=== PATIENT | female | born 1940 | race Caucasian/White ===

== ENCOUNTER 2017-02-20 07:59 | Outpatient (CLI) | payer MEDICARE, BC ==
[~2017-02-20] VITALS: Ht 170.2 cm; Wt 90.5 kg
[~2017-02-20 07:59] MED LIST: GLUCOPHAGE500 MG PO; NORVASC5 MG PO; PERCOCET 10/3251 TA1 PO; PLAVIX75 MG PO; ZESTORETIC 10/11 TAB PO
[2017-02-20 08:44] LABS: BASOPHILS 0.3 % (0-2); EOSINOPHILS 2.8 % (0-7); HEMATOCRIT 39.7 % (36.0-48.0); HEMOGLOBIN 12.8 g/dL (12-16); IMMATURE GRANULOCYTES 0.3 % (0-5); LYMPHOCYTES 21.7 % (15-50); MCH 28.2 pg (26.0-34.0); MCHC 32.2 g/dL (31.0-37.0); MCV 87.4 fL (80.0-100.0); MEAN PLATELET VOLUME 11.4 fL (7.4-10.4); MONOCYTES 5.4 % (2-11); NEUTROPHILS 69.5 % (40-80); PLATELET COUNT 200 10x3/uL (130-400); RBC 4.54 10x6/uL (4.00-5.40)
[2017-02-20 09:00] LABS: ANION GAP 11.5 mmol/L (8-16); CARBON DIOXIDE 31.5 mmol/L (21.0-32.0); CREATININE - SERUM 0.8 mg/dL (0.6-1.3)
[2017-02-20 09:01] LABS: APTT 26.7 SECONDS (22.8-39.4); INR 0.93 (0.85-1.17); PROTIME 12.3 SECONDS (11.6-15.0)
[2017-02-20 09:06] VITALS: BP 122/65; Ht 170.2 cm; Wt 90.5 kg
[2017-02-20] MEDS ORDERED: LIPITOR20 MG PO (09:26)
[2017-02-20] MEDS ORDERED: LEXAPRO20 MG PO (09:28)
[2017-02-20] MEDS ORDERED: VITAMIN D31000 UNIT PO (09:29)
[2017-02-20] MEDS ORDERED: CALCIUM 250+D T1 TAB PO (09:32)
--- NOTE | 2017-02-20 11:33 | NUR ---
1125 BACK FROM BILATERAL SI JOINT INJECTIONS. RESP EVEN AND NONLABORED. VERBALLY RESPONSIVE. BANDAIDS X 2 SACROILLIAC JOINT SITES. NO BLEEDING.
--- NOTE | 2017-02-20 11:59 | NUR ---
1155 DIET TAKEN IT. RESP EVEN AND NONLABORED. NO COS OF PAIN.
--- NOTE | 2017-02-20 13:11 | NUR ---
1235 TO HOME VIA W/C WITH FAMILY.
--- NOTE | 2017-02-20 13:11 | NUR ---
1225 UP AND VOIDED. DCD IV CATHETER INTACT. DISCHARGE INSTRUCTIONS GIVEN AND VERBALLY UNDERSTANDS.
== END 2017-02-20 12:35 | disposition home or self-care (01) ==
LOC: D.OPS 07:59
PROVIDERS: Radiology Diagnostic Radiology
DX: M53.3 Sacrococcygeal disorders, not elsewhere classified (principal); Z01.812 Encounter for preprocedural laboratory examination

== ENCOUNTER 2017-07-03 11:30 | Emergency (ER) | payer MEDICARE, BC ==
[2017-02-20 09:06] VITALS: BMI 31.2
--- NOTE | ~2017-07-03 | HEMODYNAMI ---
PATIENT:JOSÉ ANTONIO PACHECO MEDICAL RECORD: [id number] : 38 LOCATION:[facility] ADMISSION DATE: 07/03/17 Generatedon:07/03/201714:02 Patient name: JOSÉ ANTONIO PACHECO Patient #: [id number] SSN: D OB: 1940 Date of study: 07/03/2017 Page: Of Hemodynamic Procedure Report Patient Data Patient Demographics Procedure consent was obtained First Name: JOSÉ ANTONIO Gender: Female Last Name: JUNIOR : 1940 Middle Initial: MARY Age: 76 year(s) Patient #: [id number] Race: Unknown Additional ID: [id number] Contact details [address]: [address] [place] [address] State: [place] City: [place] Zip code: [address] Past Medical History Allergies: No known allergies Admission Admission Data Admission Date: 07/03/2017 Admission Time: 11:30 Procedure Procedure Types Cath Procedure Diagnostic Procedure [facility] w/Coronaries PCI Procedure Coronary Stent Coronary Stent Initial Miscellaneous Procedures Moderate Sedation up to 30 minutes Procedure Description Procedure Date Procedure Date: 07/03/2017 Procedure Start Time: 13:28 Procedure End Time: 13:54 Procedure Staff Name Function Anirudh Raamn MD Performing Physician Heather Doll RT Monitor Vivian Melendrez RT Scrub Oscar Ko RN Nurse Irais Hartmann RT Monitor Procedure Data Cath Procedure Fluoroscopy Diagnostic fluoroscopy Total fluoroscopy Time: time: 10.1 min 10.1 min Diagnostic fluoroscopy Total fluoroscopy dose: 803 dose: 803 mGy mGy Contrast Material Contrast Material Type Amount (ml) Isovue 300 143 Entry Location Entry Primary Successful Side Size Upsize Upsize Entry Closure Limon ccessful Closure Location (Fr) 1 (Fr) 2 (Fr) Remarks Device Remarks Radial Right 6 Fr Mechanical artery Short Compression Femoral Right 7 Fr Exoseal artery Short Estimated blood loss: 5 ml Diagnostic catheters Device Type Used For End Catheter Placement DIAGNOSTIC Hudson 110cm 5 Multi-vessel Fr catheter ([id number]) Angiography Procedure Complications No complications Procedure Medications Medication Administration Route Dosage 0.9% NaCl I.V. 100 ml/hr Oxygen NC 2 l/min Heparin Flush Bag added to field 2 bags (1000units/500ml NS) Lidocaine 2% added to field 20 Benadryl I.V. 50 mg Radial Cocktail added to field 1 syringe (Verapomil 2mg/Nitro 400mcg/Heparin 1500units) Versed I.V. 0.5 mg Fentanyl I.V. 50 mcg Radial Cocktail I.A. 1 syringe (Verapomil 2mg/Nitro 400mcg/Heparin 1500units) Heparin Bolus I.V. 4000 units Integrilin (Bolus I.V. 8.5 ml 2mg/ml) Integrilin (Bolus wasted 1.5 ml 2mg/ml) Fentanyl I.V. 25 mcg Fentanyl I.V. 25 mcg Hemodynamics Rest Heart Rate: 82 (bpm) Pressure Samples Time Site Value (mmHg) Purpose Heart Use Rate(bpm) 13:30 LV 33/5,-3 Snapshot 108 Snapshots Pre Cath Intra NCS Post Cath Vital Signs Time Heart Resp SPO2 NIBP (mmHg) Rhythm Pain Sedation Rate (ipm) (%) Status Level (bpm) 13:22:29 62 19 98 132/76(110) NSR 0 (11) 10(A) , No pain 13:27:14 74 17 96 125/70(104) NSR 0 (11) 10(A) , No pain 13:31:57 78 17 94 132/66(97) NSR 0 (11) 10(A) , No pain 13:36:39 85 19 94 120/73(90) NSR 0 (11) 10(A) , No pain 13:41:22 84 16 95 114/63(92) NSR 0 (11) 10(A) , No pain 13:46:37 86 17 95 132/77(100) NSR 0 (11) 10(A) , No pain 13:51:22 83 22 97 123/68(98) NSR 0 (11) 10(A) , No pain Medications Time Medication Route Dose Verified Delivered Reason Note s Effectiveness by by 13:20:19 0.9% NaCl I.V. 100 Oscar Oscar Per physician ml/hr Maikel Ko RN RN 13:20:35 Oxygen NC 2 l/min Oscar Oscar Per physician Maikel Ko RN RN 13:20:51 Heparin Flush added 2 bags Oscar Oscar used for Bag to Maikel Ko procedure (1000units/500ml field RN RN NS) 13:21:10 Lidocaine 2% added 20ml Oscar Oscar for local to vial Maikel Ko anesthetic field RN RN 13:21:27 Benadryl I.V. 50 mg Oscar Oscar Per physician Maikel Ko RN RN 13:21:46 Radial Cocktail added 1 Oscar Oscar for (Verapomil to syringe Maikel Ko vasodilation 2mg/Nitro field RN RN 400mcg/Heparin 1500units) 13:28:25 Versed I.V. 0.5 mg Oscar Oscar for sedation Maikel Ko RN RN 13:28:36 Fentanyl I.V. 50 mcg Oscar Oscar for sedation Maikel Ko RN RN 13:28:51 Radial Cocktail I.A. 1 Oscar Anirudh for (Verapomil syringe Maikel Raman MD vasodilation 2mg/Nitro RN 400mcg/Heparin 1500units) 13:36:26 Heparin Bolus I.V. 4000 Oscar Oscar for units Maikel Ko anticoagulation RN RN 13:39:03 Integrilin I.V. 8.5 ml Oscar Oscar for (Bolus 2mg/ml) Maikel Ko antiplatelet RN RN therapy 13:39:19 Integrilin wasted 1.5 ml Oscar Oscar to sharp's (Bolus 2mg/ml) Maikel Ko RN RN 13:51:58 Fentanyl I.V. 25 mcg Oscar Oscar for sedation Maikel Ko RN RN 13:54:13 Fentanyl I.V. 25 mcg Oscar Oscar for sedation Maikel Ko RN automobile seat cover installer Log Time Note 13:00:20 Time tracking: Regular hours 13:00:25 Plan of Care:Hemodynamics will remain stable., Cardiac rhythm will remain stable., Comfort level will be maintained., Respiratory function will remain adequate., Patient/ family verbilizes understanding of procedure., Procedure tolerated without complication., Recovers from procedure without complications.. 13:00:28 Heather Doll RT(R) sent for patient. Start room use. 13:10:31 Patient received from ED to CCL 1 Alert and oriented. Tansferred to table in Supine position. 13:20:19 0.9% NaCl 100 ml/hr I.V. was administered by Oscar Ko RN; Per physician; 13:20:35 Oxygen 2 l/min NC was administered by Oscar Ko RN; Per physician; 13:20:51 Heparin Flush Bag (1000units/500ml NS) 2 bags added to field was administered by Oscar Ko RN; used for procedure; 13:21:10 Lidocaine 2% 20ml vial added to field was administered by Oscar Ko RN; for local anesthetic; 13:21:27 Benadryl 50 mg I.V. was administered by Oscar Ko RN; Per physician; 13:21:30 Vital chart was started 13:21:46 Radial Cocktail (Verapomil 2mg/Nitro 400mcg/Heparin 1500units) 1 syringe added to field was administered by Oscar Ko RN; for vasodilation; 13:23:37 Warm blankets applied, and desi hugger turned on for patient comfort. 13:23:37 Correct patient and procedure confirmed by team. 13:23:38 Signed procedure consent form obtained from patient. 13:23:39 ECG and BP/O2 sat monitors applied to patient. 13:23:41 Rhythm: sinus rhythm 13:23:43 Full Disclosure recording started 13:23:48 H&P Date Dictated: 07/03/2017 ER History on chart.. 13:23:49 Pre-procedure instructions explained to patient. 13:23:50 Pre-op teaching completed and patient verbalized understanding. 13:23:51 Family in waiting room. 13:23:52 Patient NPO since Midnight. 13:23:57 Patient allergic to No known allergies 13:23:59 Is the patient allergic to Iodine/contrast media? No. 13:24:02 Is patient on blood thinner?Yes 13:24:04 ACC The patient was administered the following blood thiners within the last 24 hours: ACCPlavix 13:24:06 Patient diabetic? Yes. 13:24:07 If diabetic: On Metformin? Yes 13:24:09 If on Metformin: Last Dose? 07/02/2017 13:24:13 Previous problem with sedation/anesthesia? No ? 13:24:14 Snore? No 13:24:15 Sleep apnea? No 13:24:16 Deviated septum? No 13:24:17 Opens mouth fully? Yes 13:24:17 Sticks out tongue? Yes 13:24:19 Airway obstruction? No ? 13:24:21 Dentures? Yes IN 13:24:25 Pre procedure: right dorsailis pedis pulse 2+ Normal; easily identifiable; not easily obliterated 13:24:27 Modified César's test Ulnar < 7 seconds 13:24:29 Patient pain scale 0/10 ?. 13:24:39 IV patent on arrival in right forearm with 0.9% NaCl at [facility]. 13:24:42 Lab results completed and on chart. 13:24:46 Right Radial & Right Groin area was prepped with chlora-prep and draped in sterile fashion 13:24:47 Alarms reviewed by R. N. 13:24:47 Sharps counted by scrub and verified by R.N. 13:24:51 Use device set Radial Dx 13:24:52 ACIST Syringe (25435) opened to sterile field. 13:24:53 Medline Cath Pack ([id number]) opened to sterile field. 13:24:53 Bag Decanter (2002S) opened to sterile field. 13:24:53 SHEATH 6FR Slender ([id number]) opened to sterile field. 13:24:54 DIAGNOSTIC WIRE .035 260cm J wire (760214) opened to sterile field. 13:24:54 ACIST Hand Control (22431) opened to sterile field. 13:24:55 ACIST Manifold (03091) opened to sterile field. 13:24:55 Tegaderm 4 x 4 (1626W) opened to sterile field. 13:24:56 MBrace Wrist Support ([id number]) opened to sterile field. 13:25:16 Final Timeout: patient, procedure, and site verified with staff and physician. All members of the team are in agreement. 13:25:18 Right Radial site verified by team. 13:25:21 Physical assessment completed. ASA score P 2 - A patient with mild systemic disease as per Anirudh Raman MD. 13:25:24 Sedation plan: IV Moderate Sedation Medication:Versed, Fentanyl 13:26:05 Baseline sample Acquired. 13:26:56 Procedure started. 13:27:01 Zero performed for pressure channel P1 13:28:05 Local anesthetic to right radial artery with Lidocaine 2% by Anirudh Raman MD.INITIAL ACCESS ONLY 13:28:16 A 6 Fr Short sheath was inserted into the Right Radial artery 13:28:25 Versed 0.5 mg I.V. was administered by Oscar Ko RN; for sedation; 13:28:29 TR BAND Large ([id number]) opened to sterile field. 13:28:36 Fentanyl 50 mcg I.V. was administered by Oscar Ko RN; for sedation; 13:28:51 Radial Cocktail (Verapomil 2mg/Nitro 400mcg/Heparin 1500units) 1 syringe I.A. was administered by Anirudh Raman MD; for vasodilation; 13:29:02 A DIAGNOSTIC Hudson 110cm 5 Fr catheter ([id number]) was advanced over the wire and used for Multi-vessel Angiography. 13:29:26 Heather Doll RT(R) was relieved by Irais Hartmann RT(R) as monitoring person 13:30:37 LV hemodynamics recorded. 13:30:38 LV gram done using ROBLERO 13:30:43 EF : 55 % 13:30:50 LCA angiography performed. 13:32:11 RCA angiography performed. 13:33:50 Catheter removed. 13:33:52 Proceeding to intervention. 13:34:24 SHEATH 7FR Coleman (UTC900) opened to sterile field. 13:36:09 CHOICE PT Extra Support J 300cm guide wire ([id number]) opened to sterile field. 13:36:22 GUIDE 7FR AR 2.0 SH catheter ([id number]) opened to sterile field. 13:36:23 INFLATOR BasixTOUCH (AQ2929) opened to sterile field. 13:36:26 Heparin Bolus 4000 units I.V. was administered by Oscar Ko RN; for anticoagulation; 13:36:53 Local anesthetic to right femoral artery with Lidocaine 2% by Anirudh Raman MD.ADDITIONAL ACCESS 13:37:06 A 7 Fr Short sheath was inserted into the Right Femoral artery 13:37:15 7 Fr ar 2 sh guide catheter was inserted over the wire 13:38:13 Guide Catheter removed. unable to cannulate vessel. 13:38:47 GUIDE 7FR HS I SH catheter ([id number]) opened to sterile field. 13:39:03 Integrilin (Bolus 2mg/ml) 8.5 ml I.V. was administered by Oscar Ko RN; for antiplatelet therapy; 13:39:19 Integrilin (Bolus 2mg/ml) 1.5 ml wasted was administered by Oscar Ko RN; to sharp's; 13:39:36 choice pt wire advanced. 13:40:14 Wire removed. damaged. 13:40:33 CHOICE PT Extra Support J 300cm guide wire ([id number]) opened to sterile field. 13:42:25 choice pt wire advanced. 13:43:44 Inflation number: 1 A MAVERICK 3.5 X 20 balloon ([id number]) was prepped and advanced across the Mid RCA, then inflated to 15 SHELIA for 0:10 (min:sec). 13:44:13 Inflation number: 1 The MAVERICK 3.5 X 20 balloon ([id number]) was reinflated across the Prox RCA, to 17 SHELIA for 0:10 (min:sec). 13:44:22 Inflation number: 2 The MAVERICK 3.5 X 20 balloon ([id number]) was reinflated across the Prox RCA, to 17 SHELIA for 0:10 (min:sec). 13:44:51 Balloon removed over the wire. 13:46:29 Inflation Number: 3 A EDGARDO OTW 3.5 x 30 stent ([id number]) was prepped and advanced across the Prox RCA. The stent was deployed at 17 SHELIA for 0:10 (min:sec). 13:47:17 Stent catheter was removed intact over wire. 13:49:08 Inflation Number: 4 A EDGARDO RX 3.5 x 18 stent ([id number]) was prepped and advanced across the Prox RCA. The stent was deployed at 17 SHELIA for 0:10 (min:sec). 13:50:25 Stent catheter was removed intact over wire. 13:50:26 Wire removed. 13:50:26 Guide catheter removed. 13:51:22 EXOSEAL 7Fr (EX700) opened to sterile field. 13:51:58 Fentanyl 25 mcg I.V. was administered by Oscar Ko RN; for sedation; 13:52:08 Sheath removed intact; hemostasis achieved with Mechanical Compression to the Right Radial artery. 13:52:17 Sheath removed intact; hemostasis achieved with Exoseal to the Right Femoral artery. 13:52:19 Procedure ended.(Physican Out) 13:52:40 Fluoroscopy time 10.10 minutes. 13:52:46 Fluoroscopy dose: 803 mGy 13:52:46 Flurop Dose total: 803 13:52:50 Contrast amount:Isovue 300 143ml. 13:52:53 Sharps counted by scrub and verified by R.N. 13:52:55 TR band inflated with 10cc of air. 13:52:58 Insertion/operative site no bleeding no hematoma. 13:53:03 Post-op/insertion site Right Femoral artery dressed using a 4 x 4 and Tegaderm. 13:53:12 Post right radial artery:stable 13:53:13 Post Procedure Pulses reassessed and unchanged 13:53:23 Post procedure rhythm: unchanged. 13:53:26 Estimated blood loss: 5 ml 13:53:27 Post procedure instruction explained to patient.Patient verbalizes understanding. 13:53:28 Patient needs reinforcement of post procedure teaching. 13:53:46 Procedure type changed to Cath procedure, Diagnostic procedure, LHC, LHC w/Coronaries, PCI procedure, Coronary Stent, Coronary Stent Initial, Miscellaneous Procedures, Moderate Sedation up to 30 minutes 13:53:47 Procedure and supply charges have been captured, reviewed, submitted and are correct. 13:53:53 Procedure Complication : No complications 13:53:55 Vital chart was stopped 13:53:55 See physician's report for complete and final results. 13:54:01 Report given to Pre/Post Procedure Room. 13:54:04 Patient transfered to Pre/Post Procedure Room with Stretcher. 13:54:06 Procedure ended. 13:54:06 Full Disclosure recording stopped 13:54:13 Fentanyl 25 mcg I.V. was administered by Oscar Ko RN; for sedation; 13:54:15 ACC-PCI Only Patient was given prescriptions, or instructed by Anirudh Raman MD to start/continue the following medications upon discharge: Plavix 13:54:25 End room use (Document Last) Intervention Summary Intervention Notes Time ActionType Lesion and Equipment Used Action# Pressure Duration Attributes 13:43:44 Inflate Mid RCA MAVERICK 3.5 X 1 15 00:10 balloon 20 balloon ([id number]) 13:44:13 Reinflate Prox RCA MAVERICK 3.5 X 1 17 00:10 balloon 20 balloon ([id number]) 13:44:22 Reinflate Prox RCA MAVERICK 3.5 X 2 17 00:10 balloon 20 balloon ([id number]) 13:46:29 Place stent Prox RCA EDGARDO OTW 3.5 x 3 17 00:10 30 stent ([id number]) 13:49:08 Place stent Prox RCA EDGARDO RX 3.5 x 4 17 00:10 18 stent ([id number]) Device Usage Item Name Manufacture Quantity Catalog Number Hospital Part Current Minimal Lot# / Charge Number Stock Stock Serial# Code ACIST Syringe Acist 1 76467 042924 537836 368467 20 (66374) Medical Systems Inc Medline Cath Cardinal 1 [id number] 417477 81365 229359 5 FlightOffice [facility] ([id number]) Bag Decanter Microtek 1 2001S 269908 73649 698918 5 () Medical Inc. SHEATH 6FR Terumo 1 [id number] 651011 460827 954645 40 Slender ([id number]) DIAGNOSTIC St Nav 1 731616 385537 958406 695288 30 WIRE .035 260cm J wire (215054) ACIST Hand Acist 1 27962 608217 359216 679619 5 Control Medical (98254) Systems Inc ACIST Manifold Acist 1 16494 424402 101919 533525 5 (39658) Medical Systems Inc Tegaderm 4 x 4 3M 1 1626W 831790 968536 752320 5 (1626W) MBrace Wrist Advanced 1 140-0250-00 904614 77218 547602 5 Support Vascular (360810009) Dynamics TR BAND Large Terumo 1 [id number] 720045 323769 431413 40 ([id number]) DIAGNOSTIC Terumo 1 40-5013 570952 976479 795703 5 Hudson 110cm 5 Fr catheter (717390) SHEATH 7FR Terumo 1 FXQ486 616101 238115 392806 5 Coleman (APA712) CHOICE PT [place] 2 [id number] 567575 140257 678732 5 [id number] Extra Support Scientific [id number] J 300cm guide wire ([id number]) GUIDE 7FR AR Medtronic 1 [id number] 590430 211356 811529 0 2.0 SH catheter ([id number]) INFLATOR Merit 1 RB8055 407222 082481 429558 5 BasixTOUCH Medical (HC9100) GUIDE 7FR HS I Medtronic 1 [id number] 359498 652223 694055 0 SH catheter (LT0UEDLD) MAVERICK 3.5 X [place] 1 [id number] 437453 048879 210898 1 57300642 20 balloon Scientific ([id number]) EDGARDO OTW 3.5 x Medtronic 1 [id number] 510793 8734265 667194 5 [id number] 30 stent ([id number]) EDGARDO RX 3.5 x Medtronic 1 [id number] 364876 0238536 887650 5 [id number] 18 stent ([id number]) EXOSEAL 7Fr Cardinal 1 EX700 029378 989489 468874 5 (EX700) Health Signature Audit [place] Stage Time Signature Unsigned Intra-Procedure 07/03/2017 Irais Hartmann 2:02:47 PM RT(R) Signatures Monitor : Heather Signature : Sharmila RT Date : Time : Monitor : Irais Hartmann RT Signature : Date : Time : [facility] [address] [place] [address]
[~2017-07-03 11:30] MED LIST changes: +CALCIUM 250+D T1 TAB PO; +LEXAPRO20 MG PO; +LIPITOR20 MG PO; +VITAMIN D31000 UNIT PO
[2017-07-03 11:57] LABS: BASOPHILS 0.3 % (0-2); EOSINOPHILS 2.7 % (0-7); HEMATOCRIT 40.2 % (36.0-48.0); HEMOGLOBIN 13.3 g/dL (12-16); IMMATURE GRANULOCYTES 0.5 % (0-5); MCHC 33.1 g/dL (31.0-37.0); MCV 87.8 fL (80.0-100.0); MEAN PLATELET VOLUME 11.5 fL (7.4-10.4); MONOCYTES 7.5 % (2-11); PLATELET COUNT 201 10x3/uL (130-400); RBC 4.58 10x6/uL (4.00-5.40); RDW 13.9 % (11.5-14.5); WBC 7.7 10x3/uL (4.8-10.8)
[2017-07-03 12:11] LABS: ALBUMIN 3.6 g/dL (3.4-5.0); ALKALINE PHOSPHATASE 88 U/L (46-116); ALT (SGPT) 18 U/L (10-68); BILIRUBIN - TOTAL 0.45 mg/dL (0.2-1.3); CALC OSMOLALITY 286 mosm/kg (275-300); CALCIUM 9.3 mg/dL (8.5-10.1); CARBON DIOXIDE 31.9 mmol/L (21.0-32.0); CHLORIDE - SERUM 105 mmol/L (98-107); CREATININE - SERUM 0.9 mg/dL (0.6-1.3); GLUCOSE 127 mg/dL (74-106); POTASSIUM - SERUM 4.7 mmol/L (3.5-5.1); PROTEIN - SERUM 7.6 g/dL (6.4-8.2); SODIUM 142 mmol/L (136-145); UREA NITROGEN 19 mg/dL (7-18); eGFR NON AFRICAN AMERICAN 64 mL/min (90-120)
[2017-07-03 12:26] LABS: CHOL - HDL RATIO 5.2 ratio (2.3-4.1); CHOLESTEROL, TOTAL 262 mg/dL (0-200); CKMB 3.2 U/L (0.0-3.6); CREATINE KINASE 249 UL (21-215); HDL CHOLESTEROL 50 mg/dL (32-96); LDL CHOLESTEROL 173 mg/dL (0-100); LDL-HDL RATIO 3.5 ratio (1.5-3.5); PRO BNP 189 pg/mL (0-450); TRIGLYCERIDE 199 mg/dL (30-200)
[2017-07-03 12:28] LABS: TROPONIN-I 0.162 ng/mL (0.000-0.060)
--- NOTE | 2017-07-03 14:15 | NUR ---
1415 RECIEVED TO ROOM VIA STRETCHER WITH REPORTS OF 2 STENTS TO THE RCA. TR BAND TO R/WRIST CDI AND 7 FR EXOSEAL R/GROIN CDI
--- NOTE | 2017-07-03 14:36 | NUR ---
TR BAND REMAINS CDI AND 7 FR EXOSEAL R/GROIN CDI VSS WITH CHEST PAIN DENIED
--- NOTE | 2017-07-03 14:45 | NUR ---
PATIENT DENIED CHEST PAIN WITH VSS TR BAND IN PLACE WITH NO BLEEDING NOTED. 7 FR EXOSEAL R/GROIN CDI NO BLEEDING NO HEMATOMA NOTED
[2017-07-03] MEDS ORDERED: BAYER CHEWABLE81 MG PO (15:10)
[2017-07-03] MEDS ORDERED: ARICEPT10 MG PO (15:10)
--- NOTE | 2017-07-03 15:17 | NUR ---
7 FR EXOSEAL R/GROIN CDI WITH NO BLEEDING NO HEMATOMA NOTED. VSS WITH CHEST PAIN DENIED TR BAND TO R/WRIST IS CDI
--- NOTE | 2017-07-03 15:50 | NUR ---
7 FR EXOSEAL R/GROIN CDI NO BLEEDING NO HEMATOMA NOTED. PATIENT VOICED NO PAIN OR NEEDS
--- NOTE | 2017-07-03 16:33 | NUR ---
2 CC AIR REMOVED FROM TR BAND WITH NO BLEEDING NO HEMATOMA NOTED
--- NOTE | 2017-07-03 17:23 | NUR ---
1700 HOB ELEVATED, WILL MONITOR R GROIN FOR BLEEDING.
--- NOTE | 2017-07-03 17:30 | NUR ---
PIV REMOVED WITH TIP INTACT FROM R AC, BANDAID APPLIED. UP TO BEDSIDE TO DRESS WITH ASSIST FROM FRIEND.
--- NOTE | 2017-07-03 17:51 | NUR ---
TR BAND WEANED COMPLETELY. TEGADERM AND COTTON BALL APPLIED. BRACE REAPPLIED TO R WRIST R GROIN REMAINS C/D/I. AMBULATED TO BATHROOM TO VOID. D/C INSTRUCTIONS DISCUSSED WITH PATIENT AND FRIEND AT BEDSIDE. TO BE BACK THURSDAY AT 8/FOR 1000 PROCEDURE. WHEELED OUT VIA WHEELCHAIR BY CATH TEAM.
--- NOTE | 2017-07-07 12:17 | OP ---
PATIENT NAME: JOSÉ ANTONIO PACHECO MEDICAL RECORD: [id number] :38 LOCATION:D.ER ADMISSION DATE: SURGEON: DEB HERRERA MD DATE OF OPERATION: 07/03/2017 PROCEDURES: 1. PTCA stent to RCA. 2. Left heart catheterization. 3. Selective coronary angiography. 4. Left ventriculogram. INDICATION: Angina and coronary artery disease. PROCEDURE PERFORMED: After informed consent was obtained and after detailed explanation of the risks, benefits as well as alternative therapies, the patient elected to proceed with angiogram and angioplasty. The right femoral area was prepped and draped in normal sterile fashion. Right femoral artery was cannulated via modified Seldinger technique with placement of a 7-Maldivian sheath. All catheters exchanged through this sheath. FINDINGS: 1. The left main has 80% stenosis at the ostium. 2. Left anterior descending has moderate irregularities, but no flow-limiting stenosis. 3. The left circumflex has moderate irregularities, but no flow-limiting stenosis. 4. Right coronary artery has 90% stenosis at the ostium followed by 95% stenosis in the mid vessel. PTCA STENT OF THE RIGHT CORONARY ARTERY: The stent used is a 3.5 x 30 and 3.5 x 18 both [place] stents. Result was 0% residual stenosis. OVERALL IMPRESSION: Successful percutaneous transluminal coronary angioplasty stent of the right coronary artery going from 95% initial stenosis to 0% residual. PLAN: PTCA stent of left main in the near future. TRANSINT:[id number] Voice Confirmation ID: [id number] DOCUMENT ID: [id number] DEB HERRERA MD at 1217 CC: [id number] DICTATION DATE: 07/03/17 1356 INSPECTOR WATCH PARTS: 07/03/17 1416 DEP ER 07/03/17 [place] [address]
== END 2017-07-03 18:00 | disposition home or self-care (01) ==
LOC: D.CLR 11:30 → D.ER 11:30 → D.CLR 13:58 → D.ER 18:00
PROVIDERS: Family Medicine
DX: I25.119 Atherosclerotic heart disease of native coronary artery with unspecified angina pectoris (principal); R07.9 Chest pain, unspecified; Z95.5 Presence of coronary angioplasty implant and graft; I10 Essential (primary) hypertension; E78.5 Hyperlipidemia, unspecified; Z01.812 Encounter for preprocedural laboratory examination

== ENCOUNTER 2017-07-06 08:09 | Outpatient (CLI) | payer MEDICARE, BC ==
[~2017-07-06] VITALS: Ht 170.2 cm; Wt 90.9 kg
--- NOTE | ~2017-07-06 | HEMODYNAMI ---
PATIENT:JOSÉ ANTONIO PACHECO MEDICAL RECORD: [id number] : 38 LOCATION:ANETTE ADMISSION DATE: 07/06/17 Generatedon:07/06/201710:52 Patient name: JOSÉ ANTONIO PACHECO Patient #: [id number] SSN: D OB: 1940 Date of study: 07/06/2017 Page: Of Hemodynamic Procedure Report Patient Data Patient Demographics Procedure consent was obtained First Name: JOSÉ ANTONIO Gender: Female Last Name: JUNIOR : 1940 Middle Initial: MARY Age: 76 year(s) Patient #: [id number] Race: Unknown Additional ID: [id number] Contact details Address: [address] [place] [address] State: [place] City: [place] Zip code: [address] Past Medical History Allergies Allergen Reaction Date Comments Reported Other 07/06/2017 cedarwood,grass,pollen, allergy shrub pollen. Admission Admission Data Admission Date: 07/06/2017 Admission Time: 8:09 Lab Results Lab Result Date: 07/06/2017 Lab Result Time: 8:45 Biochemistry Name Units Result Min Max BUN mg/dl 14 --(--*-)-- 7 18 Creatinine mg/dl 0.9 --(-*--)-- 0.6 1.3 CBC Name Units Result Min Max Hematocrit % 38 *-(----)-- 42 54 Hemoglobin g/dl 12 *-(----)-- 13.5 17.5 Procedure Procedure Types Cath Procedure PCI Procedure Coronary Stent Coronary Stent Initial Miscellaneous Procedures Moderate Sedation up to 15 minutes Procedure Description Procedure Date Procedure Date: 07/06/2017 Procedure Start Time: 10:36 Procedure End Time: 10:49 Procedure Staff Name Function Ryan Love RT Monitor Heather Doll RT Scrub Oscar Ko RN Nurse Anirudh Raman MD Performing Physician Procedure Data Cath Procedure Fluoroscopy Diagnostic fluoroscopy Total fluoroscopy Time: 3.2 time: 3.2 min min Diagnostic fluoroscopy Total fluoroscopy dose: 255 dose: 255 mGy mGy Contrast Material Contrast Material Type Amount (ml) Isovue 300 90 Entry Location Entry Primary Successful Side Size Upsize Upsize Entry Closure Succes sful Closure Location (Fr) 1 (Fr) 2 (Fr) Remarks Device Remarks Femoral Left 6 Fr Exoseal artery Short Estimated blood loss: 10 ml Procedure Complications No complications Procedure Medications Medication Administration Route Dosage 0.9% NaCl I.V. 100 ml/hr Oxygen NC 2 l/min Heparin Flush Bag added to field 2 bags (1000units/500ml NS) Lidocaine 2% added to field 20 Versed I.V. 1 mg Fentanyl I.V. 50 mcg Heparin Bolus I.V. 4000 units Hemodynamics Rest HGB: 12 (g/dl) Heart Rate: 73 (bpm) Snapshots Pre Cath Intra NCS Post Cath Vital Signs Time Heart Resp SPO2 etCO2 NIBP Rhythm Pain Sedation Rate (ipm) (%) (mmHg) (mmHg) Status Level (bpm) 10:16:40 58 15 94 0 108/53(76) NSR 0 (11) 10(A) , No pain 10:21:21 72 14 98 24.8 108/51(87) NSR 0 (11) 10(A) , No pain 10:26:00 68 16 98 38.4 100/52(67) NSR 0 (11) 10(A) , No pain 10:30:42 62 14 97 21.8 86/45(64) NSR 0 (11) 10(A) , No pain 10:35:21 65 14 97 39.8 87/47(68) NSR 0 (11) 10(A) , No pain 10:39:59 72 15 97 39.1 93/46(67) NSR 0 (11) 9(A) , No pain 10:44:40 77 17 97 40.6 95/45(64) NSR 0 (11) 9(A) , No pain 10:49:21 73 17 98 39.8 89/49(74) NSR 0 (11) 9(A) , No pain Medications Time Medication Route Dose Verified Delivered Reason Notes Effectiveness by by 10:22:46 0.9% NaCl I.V. 100 Oscar Oscar Per physician ml/hr Maikel Ko RN RN 10:22:58 Oxygen NC 2 Oscar Oscar Per physician l/min Maikel Ko RN RN 10:23:12 Heparin Flush added 2 Oscar Oscar used for Bag to bags Maikel Ko procedure (1000units/500ml RN RN NS) 10:23:25 Lidocaine 2% added 20ml Oscar Oscar for local to vial Maikel Ko anesthetic field COLLADO RN 10:32:25 Versed I.V. 1 mg Oscar Oscar for sedation Maikel Ko RN, RN 10:32:36 Fentanyl I.V. 50 Oscar Oscar for sedation mcg Maikel Ko RN RN 10:37:51 Heparin Bolus I.V. 4000 Oscar Oscar for units Maikel Ko anticoagulation RN densitometrist Log Time Note 9:57:49 Heather Counts RT(R) sent for patient. Start room use. 9:57:50 Time tracking: Regular hours 9:57:54 Plan of Care:Hemodynamics will remain stable., Cardiac rhythm will remain stable., Comfort level will be maintained., Respiratory function will remain adequate., Patient/ family verbilizes understanding of procedure., Procedure tolerated without complication., Recovers from procedure without complications.. 10:11:13 Patient received from Pre/Post Procedure Room to CCL 1 Alert and oriented. Tansferred to table in Supine position. 10:11:14 Warm blankets applied, and desi hugger turned on for patient comfort. 10:11:15 Correct patient and procedure confirmed by team. 10:11:16 Signed procedure consent form obtained from patient. 10:11:17 ECG and BP/O2 sat monitors applied to patient. 10:11:26 H&P Date Dictated: 07/03/2017 Within 30 days and on chart., H&P Addendum completed by physician on day of procedure. (MUST COMPLETE FOR ALL OUTPATIENTS). 10:11:29 Pre-procedure instructions explained to patient. 10:11:30 Pre-op teaching completed and patient verbalized understanding. 10:11:31 Family in waiting room. 10:11:34 Patient NPO since Midnight. 10:15:42 Vital chart was started 10:21:53 Baseline sample Acquired. 10:21:57 Rhythm: sinus rhythm 10:22:46 0.9% NaCl 100 ml/hr I.V. was administered by Oscar Ko RN; Per physician; 10:22:58 Oxygen 2 l/min NC was administered by Oscar Ko RN; Per physician; 10:23:01 Patient allergic to Other allergycedarwood,grass,pollen, shrub pollen. 10:23:02 Is the patient allergic to Iodine/contrast media? No. 10:23:04 Is patient on blood thinner?Yes 10:23:06 ACC The patient was administered the following blood thiners within the last 24 hours: ACCPlavix 10:23:07 Patient diabetic? Yes. 10:23:09 If diabetic: On Metformin? Yes 10:23:12 Heparin Flush Bag (1000units/500ml NS) 2 bags added to field was administered by Oscar Ko RN; used for procedure; 10:23:25 Lidocaine 2% 20ml vial added to field was administered by Oscar Ko RN; for local anesthetic; 10:25:18 If on Metformin: Last Dose? 07/06/2017 10:25:23 Previous problem with sedation/anesthesia? No ? 10:25:24 Snore? Yes 10:25:25 Sleep apnea? No 10:25:26 Deviated septum? No 10:25:27 Opens mouth fully? Yes 10:25:28 Sticks out tongue? Yes 10:25:30 Airway obstruction? No ? 10:25:37 Dentures? Yes in tight 10:26:14 Pre procedure: left dorsailis pedis pulse 1+ Palpable, but thready & weak; easily obliterated 10:26:16 Patient pain scale 0/10 ?. 10:26:20 IV patent on arrival in left hand with 0.9% NaCl at KVO. 10:28:02 Lab Result : BUN 14 mg/dl 10:28:02 Lab Result : Creatinine 0.9 mg/dl 10:28:02 Lab Result : Hemoglobin 12 g/dl 10:28:02 Lab Result : Hematocrit 38 % 10:28:05 Lab results completed and on chart. 10:28:08 Left groin area was prepped with chlora-prep and draped in sterile fashion 10:28:09 Alarms reviewed by R. N. 10:28:10 Sharps counted by scrub and verified by R.N. 10:28:14 Use device set TAUTH PCI 10:28:16 INFLATOR Merit BasixCompak (ET0591) opened to sterile field. 10:28:21 SHEATH 6FR [place] (HSS301) opened to sterile field. 10:28:28 EXOSEAL 6Fr (EX600) opened to sterile field. 10:29:16 ACIST Syringe (39313) opened to sterile field. 10:29:17 Bag Decanter (2002S) opened to sterile field. 10:29:19 Medline Cath Pack ([id number]) opened to sterile field. 10:29:21 DIAGNOSTIC WIRE .035 260cm J wire (256036) opened to sterile field. 10:29:23 ACIST Hand Control (84035) opened to sterile field. 10:29:25 ACIST Manifold (36981) opened to sterile field. 10:29:27 Tegaderm 4 x 4 (1626W) opened to sterile field. 10:29:28 PERCUTANEOUS ENTRY 19GA needle opened to sterile field. 10::43 Physician arrived 10::44 --------ALL STOP TIME OUT------ 10::44 Final Timeout: patient, procedure, and site verified with staff and physician. All members of the team are in agreement. 10:29:47 Left groin site verified by team. 10:29:54 Physical assessment completed. ASA score P 2 - A patient with mild systemic disease as per Anirudh Raman MD. 10:29:59 Sedation plan: IV Moderate Sedation Medication:Versed, Fentanyl 10:30:51 CHOICE PT Extra Support 182cm wire ([id number]) opened to sterile field. 10:32:11 Zero performed for pressure channel P1 10:32:25 Versed 1 mg I.V. was administered by Oscar Ko RN; for sedation; 10:32:36 Fentanyl 50 mcg I.V. was administered by Oscar Ko RN; for sedation; 10:32:50 Zero performed for pressure channel P1 10:36:43 Procedure started. 10:36:43 Full Disclosure recording started 10:36:47 Local anesthetic to left femerol artery with Lidocaine 2% by Anirudh Raman MD.INITIAL ACCESS ONLY 10:37:00 A 6 Fr Short sheath was inserted into the Left Femoral artery 10:37:51 Heparin Bolus 4000 units I.V. was administered by Oscar Ko RN; for anticoagulation; 10:39:16 GUIDE 6FR XB 4.0 SH catheter ([id number]) opened to sterile field. 10:39:23 GUIDE 6FR XB 3.5 SH catheter (13934615) opened to sterile field. 10:39:30 6 Fr xb 4 sh guide catheter was inserted over the wire 10:39:34 Guide Catheter removed. unable to cannulate vessel. 10:39:41 6 Fr xb 3.5 sh guide catheter was inserted over the wire 10:41:17 choice pt wire advanced. 10:42:49 Wire advanced across lesion. 10:43:24 Inflation Number: 1 A EDGARDO RX 3.5 x 08 stent ([id number]) was prepped and advanced across the LMCA. The stent was deployed at 13 SHELIA for 0:10 (min:sec). 10:43:37 Stent catheter was removed intact over wire. 10:43:37 Wire removed. 10:43:38 Guide catheter removed. 10:43:59 Sheath removed intact; hemostasis achieved with Exoseal to the Left Femoral artery. 10:44:00 Procedure ended.(Physican Out) 10:46:00 Fluoroscopy time 03.20 minutes. 10:46:03 Flurop Dose total: 255 10:46:03 Fluoroscopy dose: 255 mGy 10:46:08 Contrast amount:Isovue 300 90ml. 10:46:11 Sharps counted by scrub and verified by R.N. 10:46:49 Insertion/operative site no bleeding no hematoma. 10:46:52 Post-op/insertion site Left Femoral artery dressed using a 4 x 4 and Tegaderm. 10:47:04 Post left femerol artery:stable, soft, clean and dry 10:47:17 Post Procedure Pulses reassessed and unchanged 10:47:25 Post-procedure physical assessment completed. ASA score P 2 - A patient with mild systemic disease as per Anirudh Raman MD. 10:47:32 Post procedure rhythm: unchanged. 10:47:35 Estimated blood loss: 10 ml 10:47:36 Post procedure instruction explained to patient.Patient verbalizes understanding. 10:47:37 Patient needs reinforcement of post procedure teaching. 10:47:45 Procedure type changed to Cath procedure, PCI procedure, Coronary Stent, Coronary Stent Initial, Miscellaneous Procedures, Moderate Sedation up to 15 minutes 10:49:38 Procedure and supply charges have been captured, reviewed, submitted and are correct. 10:49:40 Procedure Complication : No complications 10:49:42 Vital chart was stopped 10:49:43 See physician's report for complete and final results. 10:49:45 Report given to Pre/Post Procedure Room. 10:49:47 Patient transfered to Pre/Post Procedure Room with Stretcher. 10:49:50 Procedure ended. 10:49:50 Full Disclosure recording stopped 10:50:06 End room use (Document Last) Intervention Summary Intervention Notes Time ActionType Lesion and Equipment Used Action# Pressure Duration Attributes 10:43:[address] stent LMCA EDGARDO RX 3.5 x 1 13 00:10 08 stent ([id number]) Device Usage Item Name Manufacture Quantity Catalog Number Hospital Part Current M inimal Lot# / Charge Number Stock Stock Serial# Code INFLATOR Merit Merit 1 [id number] 132146 845855 833209 1 5 [employer] (WM6287) SHEATH 6FR Terumo 1 [id number] 353278 784578 156210 4 0 [place] ([id number]) EXOSEAL 6Fr Cardinal 1 EX600 046837 863866 793178 1 0 (EX600) Health ACIST Syringe Acist 1 92556 678509 684739 906581 2 0 (98392) Medical Systems Inc Bag Decanter Microtek 1 2001S 991364 56529 798795 5 (2001S) Medical Inc. Medline Cath Cardinal 1 [id number] 040511 44467 950710 5 [facility] ([id number]) DIAGNOSTIC St Nav 1 256452 985732 832865 552992 3 0 WIRE .035 260cm J wire (175468) ACIST Hand Acist 1 65196 201708 627806 788290 5 Control Medical (56068) Systems Inc ACIST Manifold Acist 1 76590 884789 522121 159793 5 (00038) Medical Systems Inc Tegaderm 4 x 4 3M 1 1626W 179112 439069 545746 5 (1626W) PERCUTANEOUS Cook Medical 1 P23687 393554 335315 5 ENTRY 19GA needle CHOICE PT [place] 1 [id number] 228149 222969 677028 5 Extra Support Scientific 182cm wire ([id number]) GUIDE 6FR XB Cardinal 1 [id number] 434925 463283 091642 2 4.0 Health catheter ([id number]) GUIDE 6FR XB Cardinal 1 [id number] 657478 860704 598448 2 3.5 [facility] catheter ([id number]) EDGARDO RX 3.5 x Medtronic 1 [id number] 708481 7640379 159691 5 [id number] 08 stent ([id number]) Signature Audit [place] Stage Time Signature Unsigned Intra-Procedure 07/06/2017 Ryan Love 10:52:51 AM RT(R) Signatures Monitor : Ryan Love RT Signature : Date : Time : [address] [place] [address]
[~2017-07-06 08:09] MED LIST changes: +ARICEPT10 MG PO; +BAYER CHEWABLE81 MG PO
[2017-07-06 08:38] VITALS: BP 140/68; Ht 170.2 cm; Wt 90.9 kg
[2017-07-06 08:52] LABS: BASOPHILS 0.1 % (0-2); EOSINOPHILS 3.4 % (0-7); HEMOGLOBIN 12.4 g/dL (12-16); IMMATURE GRANULOCYTES 0.1 % (0-5); LYMPHOCYTES 20.7 % (15-50); MCH 28.9 pg (26.0-34.0); MCHC 32.6 g/dL (31.0-37.0); MCV 88.6 fL (80.0-100.0); MEAN PLATELET VOLUME 11.4 fL (7.4-10.4); MONOCYTES 7.5 % (2-11); NEUTROPHILS 68.2 % (40-80); PLATELET COUNT 203 10x3/uL (130-400); RBC 4.29 10x6/uL (4.00-5.40); RDW 14.1 % (11.5-14.5); WBC 8.6 10x3/uL (4.8-10.8)
[2017-07-06 09:04] LABS: CALCIUM 9.3 mg/dL (8.5-10.1); CARBON DIOXIDE 26.7 mmol/L (21.0-32.0); CREATININE - SERUM 0.9 mg/dL (0.6-1.3); POTASSIUM - SERUM 3.7 mmol/L (3.5-5.1)
--- NOTE | 2017-07-06 11:10 | NUR ---
1100 RECEIVED PT FROM [facility]. PT IS DROWSY. RR IS EVEN AND UNLABORED. NSR WITH RATE OF 61, BP IS 127/54. 6 FR EXOSEAL TO LEFT GROIN, AREA IS CDI WITH NO BLEEDING OR HEMATOMA NOTED. PEDAL PULSES PALPABLE. FRIEND AT BEDSIDE. PT DENIES ANY C/O AT THIS TIME. CALL LIGHT IN REACH.
--- NOTE | 2017-07-06 11:24 | NUR ---
PT DENIES ANY C/O. DRESSING TO LEFT GROIN IS CDI, PEDAL PULSES PALPABLE. RR IS EVEN AND UNLABORED. BPIS 110/59, NSR RATE 67. FRIEND AT BEDSIDE, CALL LIGHT IN REACH.
--- NOTE | 2017-07-06 11:57 | NUR ---
DRESSING TO LEFT GROIN IS CDI, AREA IS SOFT AND NONTENDER. PEDAL PULSES PALPABLE. PT DENIES ANY C/O. BP IS 112/61. NSR RATE OF 67, DENIES ANY C/O CHEST PAIN. CALL LIGHT IN REACH. NO FAMILY AT BEDSIDE AT THIS TIME.
--- NOTE | 2017-07-06 12:25 | NUR ---
1215 ENTERED ROOM, PT LAYING ON LEFT SIDE WITH LEGS BENT. REPOSITIONED PT WITH HOB AT 20 DEGREES. DRESSING LEFT GROIN IS CDI, AREA SOFT AND NONTENDER.
--- NOTE | 2017-07-06 12:45 | NUR ---
1245 PT SLEEPING, AWAKENS EASILY TO VERBAL STIMULI. DENIES ANY C/O AT THIS TIME. DRESSING TO LEFT GROIN IS CDI, AREA IS SOFT AND NONTENDER. PEDAL PULSES PALPABLE.
--- NOTE | 2017-07-06 13:15 | NUR ---
1315 DENIES ANY C/O. DRESSING IS CDI, PEDAL PULSES PALPABLE. CALL LIGHT IN REACH.
--- NOTE | 2017-07-06 14:42 | NUR ---
1430 HOB ELEVATED, SANDWICH SERVED. DRESSING CDI, PT DENIES ANY C/O AT THIS TIME.
--- NOTE | 2017-07-06 14:54 | NUR ---
1445 DRESSING TO LEFT GROIN REMAINS CDI, AREA SOFT AND NONTENDER. PT DENIES ANY C/O. PADMINI SANDWICH AND PO FLUIDS WITH NO C/O NAUSEA. IV DC'D WITH CATH INTACT. PT IS DRESSING FOR DC TO HOME.
--- NOTE | 2017-07-06 16:09 | NUR ---
1500 PT HAS VOIDED QS AND DRESSED FOR DC TO HOME. REVIEWED DC INSTRUCTIONS WITH PT WHO VERBALIZES UNDERSTANDING. PT ESCORTED TO PRIVATE AUTO VIA WC BY NURSE WITH FRIEND DRIVING HER HOME.
--- NOTE | 2017-07-07 12:15 | HP ---
PATIENT: JOSÉ ANTONIO PACHECO MEDICAL RECORD: [id number] ACCOUNT: [id number] LOCATION:ANETTE : 38 ADMISSION DATE: 07/06/17 HISTORY AND PHYSICAL EXAMINATION ADMITTING DIAGNOSES: 1. Angina. 2. Coronary artery disease. 3. Recent percutaneous transluminal coronary angioplasty stent to the right coronary artery with concomitant disease of the left main. 4. Hypertension. 5. Hyperlipidemia. HISTORY OF PRESENT ILLNESS: Ms. Pacheco presents with unstable anginal symptomatology, found to have significant disease of the left main and RCA, underwent successful PTCA stent of the RCA, is now brought back for PTCA stent of the left main. PHYSICAL EXAMINATION: GENERAL APPEARANCE: Well-nourished, well-developed, appears stated age. Level of distress, comfortable. PSYCHIATRIC: Mental status, alert, normal affect. Orientation, oriented to time, place and person. EYES: Lids and conjunctiva, noninjected. No discharge, no pallor. ENT: Lips, teeth, gums, normal dentition. Oropharynx, no cyanosis, no pallor. NECK: Carotid arteries, bilateral normal upstroke, no bruits, no thrills. JUGULAR VEINS: No jugular venous pressure or distention. CERVICAL LYMPH NODES: Nontender, nonenlarged. THYROID: Not enlarged. Nontender. No nodules. LUNGS: Respiratory effort, unlabored. CHEST: Normal curvature. No thoracic deformity. No chest wall tenderness. Percussion, resonant. Auscultation, clear. No wheezes, no rales, no rhonchi. CARDIOVASCULAR: Precordial exam, nondisplaced. No heaves or pericardial thrills. Rate and rhythm, regular. Heart sounds, normal S1, normal S2. No S3, no gallop, no rub. Systolic murmur, not heard. Diastolic murmur, not heard. EXTREMITIES: No cyanosis, no edema. Peripheral pulses, full and equal in all extremities, except as noted. No bruits appreciated. ABDOMEN: Soft, nondistended. Normal aorta. No bruit. Nontender. No masses. Liver, nontender, no hepatomegaly. Spleen, nontender, no splenomegaly. MUSCULOSKELETAL: No joint tenderness. No joint swelling. No erythema. NEUROLOGICAL: Normal gait, normal strength, normal tone. SKIN: Warm and dry. REVIEW OF SYSTEMS: The patient reports easy bruising but reports no swollen glands. The patient reports no fever, no night sweats, no significant weight gain, no significant weight loss. No significant exercise tolerance. The patient reports no dry eyes, no irritation, no vision change. Patient reports no difficulty hearing and no ear pain. Patient reports no frequent nose bleeds or nose and sinus problems. Patient reports on arm pain on exertion. No shortness of breath while lying down. No history of heart murmur. Patient reports no cough, no wheezing or coughing up blood. Patient reports no abdominal pain, no vomiting. Normal appetite. No diarrhea and not vomiting blood. No nausea and no constipation. Patient reports no incontinence. No difficulty urinating. No hematuria. No increased frequency. Patient reports no muscle aches. No weakness, no arthralgias, no back pain. No swelling of the HISTORY AND PHYSICAL [id number] JUNIORJOSÉ ANTONIO MARY extremities. Patient reports no abnormal mole, no jaundice, no rashes. Reports no loss of consciousness. No weakness and no numbness. No seizures, dizziness, or headaches. The patient reports no depression, no sleep disturbance, feeling safe in a relationship and no alcohol abuse. Patient reports on fatigue. Reports no runny nose or sinus pressure. No itching, no hives, and no frequent sneezing. OVERALL IMPRESSION: Anginal symptomatology with left main disease. We will proceed with transcatheter revascularization of the left main. TRANSINT:[id number] Voice Confirmation ID: [id number] DOCUMENT ID: [id number] DEB HERRERA MD at 1215 CC: [id number] DICTATION DATE: 07/06/17951 INSECTICIDE EXPERT: 07/06/17 1015 DEP CLI 07/06/17 [facility] [address] [place] [address]
--- NOTE | 2017-07-07 12:17 | OP ---
PATIENT NAME: JOSÉ ANTONIO PACHECO MEDICAL RECORD: [id number] :38 LOCATION:D.CAT ADMISSION DATE: SURGEON: DEB HERRERA MD DATE OF OPERATION: 07/06/2017 PROCEDURES: 1. PTCA stent left main. 2. Selective coronary angiography. INDICATION: Angina and coronary artery disease. PROCEDURE IN DETAIL: After informed consent was obtained and after detailed explanation of risks, benefits as well as alternative therapies, the patient elected to proceed with angiogram and angioplasty. The right femoral area was prepped and draped in normal sterile fashion. The right femoral artery was cannulated via modified Seldinger technique with placement of 6-Japanese sheath. All catheters exchanged through this sheath. FINDINGS: The left main had an 80% stenosis at the ostium. This was addressed with a 3.5 x 8 mm [place]. Result was 0% residual stenosis. OVERALL IMPRESSION: Successful percutaneous transluminal coronary angioplasty stent of the left main going from 80% initial stenosis to 0% residual. TRANSINT:[id number] Voice Confirmation ID: [id number] DOCUMENT ID: [id number] DEB HERRERA MD at 1217 CC: [id number] DICTATION DATE: 07/06/17 1055 CASE MANAGEMENT SPECIALIST: 07/06/17 1113 [facility] CLI 07/06/[address] [address]
== END 2017-07-06 15:00 | disposition home or self-care (01) ==
LOC: D.CATH 08:09
PROVIDERS: Internal Medicine Interventional Cardiology
DX: I25.110 Atherosclerotic heart disease of native coronary artery with unstable angina pectoris (principal); Z95.5 Presence of coronary angioplasty implant and graft; I10 Essential (primary) hypertension; E78.5 Hyperlipidemia, unspecified; Z01.812 Encounter for preprocedural laboratory examination

== ENCOUNTER → 2018-03-18 13:15 | Outpatient (CLI) | payer MEDICARE, BC ==
[2017-07-06 08:38] VITALS: BMI 31.4
[~2018-03-18 13:15] MED LIST changes: -ARICEPT10 MG PO; +ARICEPT5 MG PO; +HYDROCODONE-APA1 TAB PO; +LEXAPRO10 MG PO; -LEXAPRO20 MG PO; +MOBIC7.5 MG PO
== END | disposition home or self-care (01) ==
LOC: D.US 13:15
DX: R22.1 Localized swelling, mass and lump, neck (principal)

== ENCOUNTER 2018-04-06 09:25 | Day surgery (SDC) | payer MEDICARE, BC ==
[2018-04-05 09:32] LABS: HEMATOCRIT 37.1 % (36.0-48.0); HEMOGLOBIN 11.9 g/dL (12-16); MCH 27.7 pg (26.0-34.0); MCHC 32.1 g/dL (31.0-37.0); MCV 86.5 fL (80.0-100.0); RBC 4.29 10x6/uL (4.00-5.40); RDW 15.1 % (11.5-14.5); WBC 8.2 10x3/uL (4.8-10.8)
[~2018-04-06] VITALS: Ht 167.6 cm; Wt 83.0 kg
--- NOTE | ~2018-04-06 | OP ---
PATIENT NAME: JOSÉ ANTONIO PACHECO MEDICAL RECORD: [id number] :38 LOCATION:D.OPS ADMISSION DATE: SURGEON: JARETH BARRIENTOS MD DATE OF OPERATION: 04/06/2018 PREOPERATIVE DIAGNOSES: 1. Posterior neck lipoma. 2. Diabetes mellitus. 3. Gout. 4. Coronary artery disease. 5. Peripheral vascular disease. POSTOPERATIVE DIAGNOSES: 1. Posterior neck lipoma. 2. Diabetes mellitus. 3. Gout. 4. Coronary artery disease. 5. Peripheral vascular disease. PROCEDURE IN DETAIL: Excision of 3 cm posterior neck lipoma. SURGEON: Jareth Barrientos MD REPORT OF PROCEDURE: The patient was placed in the prone position and the posterior neck was prepped and draped in sterile fashion. A transverse incision was made overlying the mass. Electrocautery was used to dissect through the subcutaneous tissues. We eventually encountered a large lipomatous structure. This lipoma was released from its surrounding attachments. There was a cavity present around this lipoma. Once the lipoma was removed, it was measured out at about 3 cm in greatest diameter. The lipoma cavity was then treated with electrocautery and then irrigated out with normal saline. Care was taken to assure there was no sign of any active bleeding. The subcutaneous tissues were then reapproximated with interrupted 3-0 Vicryl and the skin was closed with running subcutaneous 5-0 Monocryl. A 10 mL of 0.25% Marcaine with epinephrine were infused into the surrounding tissues and the wounds were dressed appropriately. COMPLICATIONS: None. CONDITION: Stable. ANESTHESIA: General endotracheal and local. BLOOD LOSS: Minimal. TRANSINT:[id number] Voice Confirmation ID: [id number] DOCUMENT ID: [id number] OPERATIVE REPORT [id number] JOSÉ ANTONIO PACHECO MARY JARETH BARRIENTOS MD at 1421 CC: MARIO ADAN [id number] DICTATION DATE: 04/06/18 141 FREELANCE TRANSLATOR: 04/06/18 1418 [place] [id number]
[~2018-04-06 09:25] MED LIST changes: -HYDROCODONE-APA1 TAB PO
[2018-04-06 10:49] VITALS: BP 122/67; Ht 167.6 cm; Wt 83.0 kg
[2018-04-06] MEDS ORDERED: HYDROCODONE-APA1 TAB PO (14:07)
== END 2018-04-06 16:10 | disposition home or self-care (01) ==
LOC: D.OPS 09:25 → D.PAN 09:30 → D.OPS 13:10
PROVIDERS: Anesthesiology
DX: D17.0 Benign lipomatous neoplasm of skin and subcutaneous tissue of head, face and neck (principal); E11.9 Type 2 diabetes mellitus without complications; M10.9 Gout, unspecified; I25.10 Atherosclerotic heart disease of native coronary artery without angina pectoris; I70.209 Unspecified atherosclerosis of native arteries of extremities, unspecified extremity; Z01.812 Encounter for preprocedural laboratory examination

== ENCOUNTER 2018-10-25 09:00 | Outpatient (CLI) | payer MEDICARE, BC ==
[2018-04-06 10:49] VITALS: BMI 29.6
[~2018-10-25 09:00] MED LIST changes: +HYDROCODONE-APA1 TAB PO
== END 2018-10-25 10:00 | disposition home or self-care (01) ==
LOC: D.MAMMO 09:00
PROVIDERS: ATTEND Family Medicine
DX: N63.24 Unspecified lump in the left breast, lower inner quadrant (principal)

== ENCOUNTER → 2018-11-22 10:10 | Outpatient (CLI) | payer MEDICARE, BC ==
[2018-04-06 10:49] VITALS: BMI 29.6
== END | disposition home or self-care (01) ==
LOC: D.MRI 10:10
PROVIDERS: ATTEND Orthopaedic Surgery
DX: M23.309 Other meniscus derangements, unspecified meniscus, unspecified knee (principal)

== ENCOUNTER → 2018-11-25 08:27 | Outpatient (CLI) | payer MEDICARE, BC ==
[2018-04-06 10:49] VITALS: BMI 29.6
== END | disposition home or self-care (01) ==
LOC: D.MRI 08:27
PROVIDERS: ATTEND Orthopaedic Surgery
DX: M25.561 Pain in right knee (principal)

== ENCOUNTER → 2018-11-29 12:43 | Outpatient (CLI) | payer MEDICARE, BC ==
[2018-04-06 10:49] VITALS: BMI 29.6
== END | disposition home or self-care (01) ==
LOC: D.CT 12:43
PROVIDERS: ATTEND Orthopaedic Surgery
DX: R93.7 Abnormal findings on diagnostic imaging of other parts of musculoskeletal system (principal)

== ENCOUNTER → 2018-12-01 10:12 | Outpatient (CLI) | payer MEDICARE, BC ==
[2018-04-06 10:49] VITALS: BMI 29.6
== END | disposition home or self-care (01) ==
LOC: D.CT 10:12
PROVIDERS: ATTEND Orthopaedic Surgery
DX: R91.8 Other nonspecific abnormal finding of lung field (principal)

== ENCOUNTER 2018-12-07 07:42 | Outpatient (CLI) | payer MEDICARE, BC ==
[~2018-12-07] VITALS: Ht 170.2 cm; Wt 85.0 kg
[2018-12-07 08:14] LABS: BASOPHILS 0.4 % (0-2); EOSINOPHILS 2.5 % (0-7); HEMATOCRIT 33.2 % (36.0-48.0); HEMOGLOBIN 10.7 g/dL (12-16); IMMATURE GRANULOCYTES 0.2 % (0-5); LYMPHOCYTES 17.6 % (15-50); MCH 27.9 pg (26.0-34.0); MCHC 32.2 g/dL (31.0-37.0); MCV 86.7 fL (80.0-100.0); MEAN PLATELET VOLUME 11.2 fL (7.4-10.4); MONOCYTES 6.7 % (2-11); NEUTROPHILS 72.6 % (40-80); PLATELET COUNT 213 10x3/uL (130-400); RBC 3.83 10x6/uL (4.00-5.40); RDW 14.7 % (11.5-14.5); WBC 5.7 10x3/uL (4.8-10.8)
[2018-12-07 08:17] LABS: INR 0.96 (0.85-1.17); PROTIME 12.3 SECONDS (11.6-15.0)
[2018-12-07 08:18] LABS: ANION GAP 10.2 mmol/L (8-16); CALCIUM 8.8 mg/dL (8.5-10.1); CARBON DIOXIDE 30.9 mmol/L (21.0-32.0); CREATININE - SERUM 1.1 mg/dL (0.6-1.3); POTASSIUM - SERUM 5.1 mmol/L (3.5-5.1)
[2018-12-07] MEDS ORDERED: ADVIL200 MG PO (08:45)
[2018-12-07 08:50] VITALS: BP 127/53; Ht 170.2 cm; Wt 85.0 kg
--- NOTE | 2018-12-07 12:56 | NUR ---
DC INSTRUCTIONS GIVEN TO PT/FAMILY. STATE UNDERSTANDING. DC'D IV CATH FULLY INTACT. PT LEFT UNIT VIA WC AT 1255
== END 2018-12-07 12:55 | disposition home or self-care (01) ==
LOC: D.SP 07:42 → D.CT 08:30 → D.SP 08:30
PROVIDERS: Radiology Diagnostic Radiology; ATTEND Family Medicine
DX: C79.51 Secondary malignant neoplasm of bone (principal); Z01.812 Encounter for preprocedural laboratory examination

== ENCOUNTER → 2019-01-03 08:44 | Outpatient (CLI) | payer MEDICARE, BC ==
[2018-12-07 08:50] VITALS: BMI 29.3
[~2019-01-03 08:44] MED LIST changes: +ADVIL200 MG PO
--- NOTE | 2019-01-04 15:37 | EC ---
PATIENT:JOSÉ ANTONIO PACHECO DATE OF SERVICE: 01/03/19 SEX: F MEDICAL RECORD: [id number] DATE OF : 38 LOCATION:[facility] AGE OF PATIENT: 78 ADMISSION DATE: 01/03/19 REFERRING PHYSICIAN: INTERPRETING PHYSICIAN: SOLEDAD TANNER MD ECHOCARDIOGRAM REPORT ECHO CHARGES 4 ECHO COMPLETE Date: 01/03/19 CLINICAL DIAGNOSIS: ASSESS EF, CHEMO ECHOCARDIOGRAPHIC MEASUREMENTS (adult normal given) AC root (d.<3.7cm) 3.1 cm LV Septum d (<1.2 cm> 1.8 cm Valve Excursion 2.0 cm LV Septum (systole) 2.1 cm Left Atria (s.<4.0cm> 3.7 cm LVPW d(<1.2cm) 1.1 cm RV (d.<2.3cm) 3.8 cm LVPW (sytole) 1.5 cm LV diastole(<5.6CM) 5.4 cm MV E-F(>70mm/sec) cm LV systole 4.2 cm LVOT Diameter 1.7 cm MV exc.(>10mm) cm Est.ejection fraction (50-75%) % DOPPLER: LVIT cm/sec A 112 cm/sec E 90 cm/sec LA cm/sec RVSP 42.2 mmHg LVOT 139 cm/sec AOP1/2T m/s Asc. Ao 154 cm/sec RVOT 60 cm/sec RA cm/sec PA 79 cm/sec AV Gradient Peak 9.5 mmHg AV Mean 5.1 mmHg AV Area 2.1 cm MV Gradient Peak 6.2 mmHg MV Mean 2.9 mmHg MV Area cm COMMENTS: Template Storage Clerk: Addison JARA Director Hair: 3 Dr. Sousa TAPE# PACS Pericardial Effusion N DATE OF SERVICE: Adequate 2D, color flow, spectral Doppler, and M-Mode. Mild LVH. LV internal dimension is normal. Wall motion is normal. EF is greater than or equal to 55%. Aortic valve sclerosis. There is no evidence of stenosis on Doppler interrogation. Left atrium is normal. Mitral valve shows no prolapse. Trace MR only. Right-sided chambers are grossly normal. Mild TR. TRANSINT:[id number] Voice Confirmation ID: [id number] DOCUMENT ID: [id number] ECHOCARDIOGRAM REPORT [id number] JOSÉ ANTONIO PACHECO SOLEDAD TANNER MD at 1537 CC: SEGUNDO GALAN MD [id number] DICTATION DATE: 01/03/19 1204 SHIPMASTER: 01/03/19 1422 DEP CLI 01/03/19 [place] [id number] [place] [address]
== END | disposition home or self-care (01) ==
LOC: D.ECHO 08:44
PROVIDERS: ATTEND Internal Medicine Medical Oncology
DX: C34.11 Malignant neoplasm of upper lobe, right bronchus or lung (principal); C79.51 Secondary malignant neoplasm of bone

== ENCOUNTER → 2019-04-06 09:18 | Outpatient (CLI) | payer MEDICARE, BC ==
[2018-12-07 08:50] VITALS: BMI 29.3
--- NOTE | 2019-04-07 14:31 | EC ---
PATIENT:JOSÉ ANTONIO PACHECO DATE OF SERVICE: 04/06/19 SEX: F MEDICAL RECORD: [id number] DATE OF : 38 LOCATION:[facility] AGE OF PATIENT: 78 ADMISSION DATE: 04/06/19 REFERRING PHYSICIAN: INTERPRETING PHYSICIAN: DEB RAMAN MD ECHOCARDIOGRAM REPORT ECHO CHARGES 4 ECHO COMPLETE Date: 04/06/19 CLINICAL DIAGNOSIS: CANCER/CHEMOTHERAPY ECHOCARDIOGRAPHIC MEASUREMENTS (adult normal given) AC root (d.<3.7cm) 3.1 cm LV Septum d (<1.2 cm> 1.5 cm Valve Excursion 1.7 cm LV Septum (systole) 2.2 cm Left Atria (s.<4.0cm> 4.2 cm LVPW d(<1.2cm) 1.2 cm RV (d.<2.3cm) 2.8 cm LVPW (sytole) 2.2 cm LV diastole(<5.6CM) 5.7 cm MV E-F(>70mm/sec) cm LV systole 3.3 cm LVOT Diameter 1.9 cm MV exc.(>10mm) cm Est.ejection fraction (50-75%) % DOPPLER: LVIT cm/sec A 139 cm/sec E 89.0 cm/sec LA cm/sec RVSP 46.0 mmHg LVOT 139 cm/sec AOP1/2T m/s Asc. Ao 148 cm/sec RVOT 58.0 cm/sec RA cm/sec PA 96.0 cm/sec AV Gradient Peak 8.8 mmHg AV Mean 4.1 mmHg AV Area 2.4 cm MV Gradient Peak 7.8 mmHg MV Mean 2.1 mmHg MV Area cm COMMENTS: Statement Clerks Manager: Anuel ANGELESOE Product Marketing Programs Manager: 1 Dr. Raman TAPE# PACS Pericardial Effusion N DATE OF SERVICE: 04/06/2019 PROCEDURE: Echocardiogram. FINDINGS: 1. Left ventricular chamber size is mildly dilated. Left ventricular systolic function is preserved at 55%. 2. Left atrium is enlarged at 4.2 cm. Right atrium and right ventricular chamber sizes are as well mildly dilated. 3. Valvular structures have normal structure and motion. ECHOCARDIOGRAM REPORT [id number] JOSÉ ANTONIO PACHECO 4. Doppler interrogation reveals moderate mitral regurgitation, mild tricuspid regurgitation, no other valvular insufficiency or stenosis. Pulmonary systolic pressure is estimated at 46 mmHg. 5. No evidence of pericardial effusion or left ventricular thrombus. TRANSINT:[id number] Voice Confirmation ID: [id number] DOCUMENT ID: [id number] DEB RAMAN MD at [id number] CC: [id number] DICTATION DATE: 04/06/19 1718 LOAD BUILDER: 04/07/19 0000 DEP CLI 04/06/19 [id number] [place] [address]
== END | disposition home or self-care (01) ==
LOC: D.ECHO 09:18
PROVIDERS: ATTEND Internal Medicine Medical Oncology
DX: Z51.11 Encounter for antineoplastic chemotherapy (principal); D50.9 Iron deficiency anemia, unspecified; D51.9 Vitamin B12 deficiency anemia, unspecified; C79.51 Secondary malignant neoplasm of bone; C34.11 Malignant neoplasm of upper lobe, right bronchus or lung